=== PATIENT | female | born 1965 | race Caucasian/White ===

== ENCOUNTER → 2018-10-25 | Emergency (ER) | payer OTHER ==
[~2018-10-25] VITALS: Ht 167.6 cm; Wt 101.6 kg
== END | disposition left against medical advice (07) ==
LOC: ER 15:31
DX: Z53.21 Procedure and treatment not carried out due to patient leaving prior to being seen by health care provider (principal)

== ENCOUNTER 2019-02-16 06:07 | Emergency (ER) | payer OTHER ==
[~2019-02-16] VITALS: Ht 167.6 cm; Wt 104.3 kg
== END 2019-02-16 12:33 | disposition home or self-care (01) ==
LOC: ER 06:07
DX: S80.02XA Contusion of left knee, initial encounter (principal); W18.39XA Other fall on same level, initial encounter; Y93.89 Activity, other specified; Y92.098 Other place in other non-institutional residence as the place of occurrence of the external cause; Y99.8 Other external cause status

== ENCOUNTER 2019-06-20 10:55 | Outpatient (CLI) | payer OTHER | END 2019-06-20 10:59 | disposition home or self-care (01) | LOC: RAD 10:55 | DX: Z01.811 Encounter for preprocedural respiratory examination (principal) ==

== ENCOUNTER 2021-04-24 15:59 | Emergency (ER) | payer OTHER ==
[~2021-04-24] VITALS: Ht 167.6 cm; Wt 108.9 kg
== END 2021-04-24 20:16 | disposition home or self-care (01) ==
LOC: ER 15:59
DX: M62.838 Other muscle spasm (principal)